=== PATIENT | male | born 1985 | race Caucasian/White ===

== ENCOUNTER 2020-02-27 20:01 | Emergency (ER) | payer SELFPAY ==
[2020-02-27 20:20] VITALS: BP 131/69
[2020-02-27] MEDS ORDERED: LIDOCAINE 1% INJ-PF (10 MG/ML) 30 ML SDV INJ ONE ×2 (20:59)
--- NOTE | 2020-02-27 21:05 | ER Document Report ---
HPI - HPI Time Seen by Provider: 02/27/20 20:50 Pain Level: 2 Notes: 34-year-old male presents emergency room for left forearm abscess that started a couple of days ago. He states he has been shooting up Suboxone but states he is not sure enough anymore. Has not tried any hnrx-pry-efchrky medications. Mass is localized to left forearm. Denies fevers, chills, chest pain,palpitations, shortness of breath, dyspnea, nausea, vomiting, diarrhea, abdominal pain, hem aturia,blurred vision, double vision, loss of vision, speech changes, LH, dizziness, syncope, headaches, wheezing, ST, URI, neck pain, weakness, bowel or bladder dysfunction, saddle anesthesia, numbness or tingling in bilateral upper or lower extremities equally, muscle paralysis, weakness in bilateral upper or lower extremities equally or rash. MEDICATIONS: I agree with the patient medications as charted by the RN. ALLERGIES: I agree with the allergies as charted by the RN. PAST MEDICAL HISTORY/PAST SURGICAL HISTORY: Reviewed and agree as charted by RN. SOCIAL HISTORY: Reviewed and agree as charted by RN. FAMILY HISTORY: No significant familial comorbid conditions directly related to patient complaint EXAM: Reviewed vital signs as charted by RN. REVIEW OF SYSTEMS:reviewed vital signs by RN CONSTITUTIONAL : Denies fever, chills, or sweats. Denies recent illness. EENT: Denies eye, ear, throat, or mouth pain or symptoms. Denies nasal or sinus congestion or discharge. Denies throat, tongue, or mouth swelling or difficulty swallowing. CARDIOVASCULAR: Denies chest pain. Denies palpitations or racing or irregular heart beat. Denies ankle edema. RESPIRATORY: Denies cough, cold, or chest congestion. Denies shortness of breath, difficulty breathing, or wheezing. GASTROINTESTINAL: Denies abdominal pain or distention. Denies nausea, vomiting, or diarrhea. Denies blood in vomitus, stools, or per rectum. Denies black, tarry stools. Denies constipation. GENITOURINARY: Denies difficulty urinating, painful urination, burning, frequency, blood in urine, or discharge. MUSCULOSKELETAL: Denies back or neck pain or stiffness. Denies joint pain or swelling. SKIN: Left forearm with abscess. denies rash, lesions or sores. HEMATOLOGIC : Denies easy bruising or bleeding. LYMPHATIC: Denies swollen, enlarged glands. NEUROLOGICAL: Denies confusion or altered mental status. Denies passing out or loss of consciousness. Denies dizziness or lightheadedness. Denies headache. Denies weakness or paralysis or loss of use of either side. Denies problems with gait or speech. Denies sensory loss, numbness, or tingling. Denies seizures. PSYCHIATRIC: Denies anxiety or stress. Denies depression, suicidal ideation, or homicidal ideation. ALL OTHER SYSTEMS REVIEWED AND NEGATIVE. Dictation was performed using [employer] voice recognition software PHYSICAL EXAMINATION: GENERAL: Well-appearing, well-nourished and in no acute distress. HEAD: Atraumatic, normocephalic. EYES: Pupils equal round and reactive to light, extraocular movements intact, sclera anicteric, conjunctiva are normal. ENT: Nares patent, oropharynx clear without exudates. Moist mucous membranes. NECK: Normal range of motion, supple without lymphadenopathy LUNGS: Breath sounds clear to auscultation bilaterally and equal. No wheezes rales or rhonchi. HEART: Regular rate and rhythm without murmurs ABDOMEN: Soft, nontender, nondistended abdomen. No guarding, no rebound. No masses appreciated. Musculoskeletal: Normal range of motion, no pitting or edema. No cyanosis. NEUROLOGICAL: Cranial nerves grossly intact. Normal speech, normal gait. Normal sensory, motor exams PSYCH: Normal mood, normal affect. SKIN: Warm, Dry, normal turgor, no rashes or lesions noted. Left mid forearm with approximately 1 cm x 1 cm area of induration warmth to touch with fluctuance, no surrounding erythema, no surrounding lymphadenopathy. 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 radial pulses + 2 BUE equally. Negative kanavels sign. No open wounds or drainage from wrist. No vascular compromise.No body crepitus or focal area of TTP. Limited ROM with flexion, extension, ulnar/radial deviation . Motor and sensory function of ulnar, radial, medial nerves intact bilaterally and equally. Past Medical History - General Information source: Patient - Social History Smoking Status: Current Every Day Smoker Frequency of alcohol use: None Drug Abuse: Prescription drugs Family History: Reviewed & Not Pertinent Vertical Provider Document - CONSTITUTIONAL Agree With Documented VS: Yes Exam Limitations: No Limitations General Appearance: WD/WN Course - Vital Signs Vital signs: Temp Pulse Resp BP Pulse Ox 98.7 F 86 20 131/69 H 100 02/27/20 20:18 02/27/20 20:18 02/27/20 20:18 02/27/20 20:18 02/27/20 20:18 Procedures - Incision and Drainage Left Arm Time completed: 21:02 Type: Simple Anesthetic type: 1% Lidocaine mL's of anesthetic: 4 - mL Blade size: 11 I&D procedure: Shurclens applied Incision Method: Incision made by scalpel Amount/type of drainage: 5mL-purulent/bloody drainage Notes: 02/27/20 21:02 Verbal consent given by patient for procedure. Site cleaned with Shur-Clens for 2 minutes. Nonsterile gloves, 0.5 cm linear incision made. Purulent drainage. forearms to break out inoculations. idoform Patient will be started on doxycycline twice a day for 10 days. 02/27/20 21:03 Discharge - Discharge Clinical Impression: Abscess of left forearm, IV drug user Condition: Stable Disposition: HOME, SELF-CARE Instructions: Post Incision and Drainage, Abscess ([facility]) Additional Instructions: Return to the emergency room in 2 days for wound check. Given first dose of antibiotic here in the emergency room do not get incision wet.do not submerge in water. Please take antibiotics with food twice a day for 10 days. The antibiotic I am giving you will cover for MRSA. Please alternate between Tylenol and ibuprofen for pain control. Please apply warm compress to site 20 minutes on 20 minutes off several times a day Return immediately for any new or worsening symptoms. Follow up with primary care provider, call tomorrow to make followup appointment. Return immediately for any new or worsening symptoms. Follow up with primary care provider, call tomorrow to make followup appointment. Prescriptions: Doxycycline Hyclate 100 mg PO BID 10 Days #20 tablet.dr Forms: Return to Work Referrals: CONCHITA BENZ MD [ACTIVE STAFF] - 02/29/20
[2020-02-27] MEDS ORDERED: DOXYCYCLINE HYCLATE 100 MG TABLET PO ONE (21:06)
== END 2020-02-27 21:41 | disposition home or self-care (01) ==
LOC: ER 20:01
DX: L02.414 Cutaneous abscess of left upper limb (principal); F17.200 Nicotine dependence, unspecified, uncomplicated; F19.10 Other psychoactive substance abuse, uncomplicated
CPT/HCPCS: 99283; 87070; 87205; 87075; 10060; J3490; 87077

== ENCOUNTER 2020-02-29 07:22 | Emergency (ER) | payer SELFPAY ==
[2020-02-29 07:28] VITALS: BP 150/89
--- NOTE | 2020-02-29 09:15 | ER Document Report ---
ED General - General Chief Complaint: Wound Recheck Stated Complaint: RECHECK ABSCESS/LEFT FOREARM Notes: Patient is a 34-year-old white male with a history of IV drug abuse who presents to the emergency department with a chief complaint of needing a wound rechecked. Patient was seen here 2 days ago for an abscess formation to the left forearm. Reports the area was packed and he was given a prescription for antibiotics. He states he is not filled the doxycycline yet but did take 1 clindamycin he had leftover from a previous prescription last night. He denies any worsening of the wound. Denies any fever or red streaking. No chills or night sweats. - Related Data Allergies/Adverse Reactions: No Known Allergies Allergy (Unverified 02/27/20 20:50) Past Medical History - Social History Smoking Status: Current Every Day Smoker Chew tobacco use (# tins/day): No Frequency of alcohol use: Social Drug Abuse: Other Family History: Reviewed & Not Pertinent Patient has homicidal ideation: No Review of Systems - Review of Systems Constitutional: denies: Fever EENT: denies: Throat pain Cardiovascular: denies: Chest pain Respiratory: denies: Short of breath Gastrointestinal: denies: Abdominal pain Genitourinary: denies: Burning Male Genitourinary: denies: Penile discharge Musculoskeletal: denies: Muscle pain Skin: Other - Wound Hematologic/Lymphatic: denies: Easy bleeding Neurological/Psychological: denies: Headaches Physical Exam - Vital signs Vitals: Temp Pulse Resp BP Pulse Ox 98.4 F 99 18 150/89 H 100 02/29/20 07:25 02/29/20 07:25 02/29/20 07:25 02/29/20 07:25 02/29/20 07:25 - General General appearance: Appears well, Alert In distress: None - Respiratory Respiratory status: No respiratory distress Chest status: Nontender Breath sounds: Normal Chest palpation: Normal - Cardiovascular Rhythm: Regular Heart sounds: Normal auscultation - Neurological Neuro grossly intact: Yes Cognition: Normal Orientation: AAOx4 - Psychological Associated symptoms: Normal affect, Normal mood - Skin Skin Color: Other - Well-appearing wound status post I&D with a patent incision to the left forearm. Packing in place. Minimal surrounding localized erythema. Some mild induration is still appreciated. Status post packing removal no purulent drainage, expanding cellulitis or proximal streaking. Course - Re-evaluation Re-evalutation: 02/29/20 09:14 Patient states that he will fill the prescription for doxycycline today and begin as previously prescribed. Despite not having this regimen already initiated the wound appears to be healing routinely. Counseled the patient regarding further wound care measures. Discussed the importance of ongoing outpatient follow-up, discontinue IV drug abuse and advised to return here or any ER immediately with any new, persistent or worsening symptoms. He verbalized understood and agreed. - Vital Signs Vital signs: Temp Pulse Resp BP Pulse Ox 98.4 F 99 18 150/89 H 100 02/29/20 07:25 02/29/20 07:25 02/29/20 07:25 02/29/20 07:25 02/29/20 07:25 Discharge - Discharge Clinical Impression: Visit for wound check Condition: Stable Disposition: HOME, SELF-CARE Instructions: Post Incision and Drainage Additional Instructions: Follow-up with your regular doctor in 2 to 3 days for reevaluation. Return here or any ER immediately with any new, persistent or worsening symptoms.
== END 2020-02-29 09:36 | disposition home or self-care (01) ==
LOC: ER 07:22
DX: L02.414 Cutaneous abscess of left upper limb (principal); T36.4X6A Underdosing of tetracyclines, initial encounter; Z91.128 Patient's intentional underdosing of medication regimen for other reason; Z91.14 Patient's other noncompliance with medication regimen; F19.10 Other psychoactive substance abuse, uncomplicated; F17.200 Nicotine dependence, unspecified, uncomplicated; Z98.890 Other specified postprocedural states
CPT/HCPCS: 99282